=== PATIENT | female | born 1980 | race Caucasian/White ===

== ENCOUNTER → 2016-12-19 | Outpatient (CLI) | payer OTHER | LOC: MOB LAB 15:41 | PROVIDERS: ATTEND Physician Assistant | DX: N39.0 Urinary tract infection, site not specified (principal) | CPT/HCPCS: 87088 ==

== ENCOUNTER → 2017-04-21 | Outpatient (CLI) | payer OTHER | LOC: MOB LAB 16:48 | PROVIDERS: ATTEND Physician Assistant | DX: N30.01 Acute cystitis with hematuria (principal) | CPT/HCPCS: 87077; 87088; 87186 ==

== ENCOUNTER → 2017-05-04 | Outpatient (CLI) | payer OTHER ==
--- NOTE | 2017-05-04 14:23 | DI ---
CT ABDOMEN/PELVIS W/O CONTRAST,05/04/2017 1:25 PM: Clinical History: Flank pain. Previous Exam: July 14, 2016 Findings: Multiple helically acquired CT images are obtained through the abdomen and pelvis without contrast, a nd demonstrate a stable left renal parenchymal stone measuring approximately 2 mm. There is no ureter al stone no hydronephrosis. There is mild diffuse fatty infiltration of the liver. The gallbladder is unremarkable. The spleen, pancreas and adrenals are unremarkable. There is no mese nteric or retroperitoneal lymphadenopathy. The appendix is normal. There is an intrauterine device noted which appears to be in good position. The right ovary measures 4.3 cm in long axis. There is no free fluid nor free air. Impression: 1. 4.3 cm cyst within the right adnexa. This is a normal finding in a premenopausal female. 2. No obstructive uropathy. 3. Normal appendix.
== END ==
LOC: CT 13:22
PROVIDERS: ATTEND Physician Assistant Medical
DX: R10.9 Unspecified abdominal pain (principal); R31.9 Hematuria, unspecified
CPT/HCPCS: 74176